=== PATIENT | female | born 1950 | race Caucasian/White ===

== ENCOUNTER 2016-11-26 13:00 | Inpatient (IN) | payer BC, MEDICARE ==
[2016-12-08] MEDS ORDERED: FAMOTIDINE 20MG TABLET PO ONE (06:00)
[2016-12-08] MEDS ORDERED: VANCOMYCIN HCL 1,000 MG in 0.9 % SODIUM CHLORIDE 250ML 250 ML IVPB ONE (06:00)
[2016-12-08] MEDS ORDERED: ACETAMINOPHEN 1,000 MG/100 ML BTL IV ONE (06:00)
[2016-12-08] MEDS ORDERED: CELECOXIB 100 MG CAPSULE PO ONE (06:00)
[2016-12-08] MEDS ORDERED: CEFAZOLIN 2 Gram 2 GM/50 ML BAG IVPB ONE (06:00)
[2016-12-08] MEDS ORDERED: METOCLOPRAMIDE 10 MG TABLET PO ONE (06:00)
[2016-12-08] MEDS ORDERED: MECLIZINE 25 MG TABLET PO ONE (06:00)
[2016-12-08 07:55] LABS: ABO GROUP O; ANTIBODY SCREEN NEGATIVE (NEGATIVE); RH TYPE POSITIVE
[2016-12-08] MEDS ORDERED: TRANEXAMIC ACID 1,000 MG/10 ML ML IV ONE ×2 (08:30→14:00)
[2016-12-08 08:45] LABS: URINE APPEARANCE CLEAR; URINE BILIRUBIN NEGATIVE (NEGATIVE); URINE BLOOD NEGATIVE (NEGATIVE); URINE COLOR YELLOW; URINE GLUCOSE (UA) NEGATIVE (NEGATIVE); URINE KETONE NEGATIVE (NEGATIVE); URINE LEUKOCYTE ESTERASE SMALL (NEGATIVE); URINE NITRITE NEGATIVE (NEGATIVE); URINE PROTEIN NEGATIVE (NEGATIVE); URINE UROBILINOGEN 0.2 E.U./dL (0.20 - 1.00)
[2016-12-08 09:42] LABS: URINE BACTERIA FEW; URINE EPITHELIAL CELLS 0 - 2 (FEW); URINE RBC NONE SEEN (NONE SEEN)
[2016-12-08] MEDS ORDERED: ACETAMINOPHEN W/ CODEINE 300MG/60MG TABLET PO PRN ×2 (11:05)
[2016-12-08] MEDS ORDERED: HYDROMORPHONE HCL 2 MG/ML VIAL IM PRN (11:05)
[2016-12-08] MEDS ORDERED: ZOLPIDEM TARTRATE 5 MG TABLET PO PRN (11:05)
[2016-12-08] MEDS ORDERED: ACETAMINOPHEN 325 MG TAB PO PRN (11:05)
[2016-12-08] MEDS ORDERED: HYDROMORPHONE HCL 1 MG/ML CPJ IM PRN ×2 (11:05)
[2016-12-08] MEDS ORDERED: HYDROCODONE/APAP 10/325 TABLET PO PRN (11:05)
[2016-12-08] MEDS ORDERED: MAGNESIUM HYDROXIDE 30 ML UDC PO PRN (11:05)
[2016-12-08] MEDS ORDERED: NALOXONE 0.4 MG/1 ML VIAL IVP PRN (11:05)
[2016-12-08] MEDS ORDERED: KETOROLAC 30 MG/ML VIAL IVP PRN ×2 (11:05)
[2016-12-08] MEDS ORDERED: AL HYDROX/MAG HYDROX 30ML UD PO PRN (11:05)
[2016-12-08] MEDS ORDERED: DIPHENHYDRAMINE HCL 25 MG CAPSULE PO PRN (11:05)
[2016-12-08] MEDS ORDERED: ONDANSETRON HCL IV 4 MG/2 ML VIAL IVP PRN (11:05)
[2016-12-08] MEDS ORDERED: BISACODYL 10 MG SUPP RC PRN (11:05)
[2016-12-08] MEDS ORDERED: FLU VAC QS 2016-17 (INPT, 3YR+) 60MCG/0.5ML IM ONE (11:42)
[2016-12-08] MEDS: POTASSIUM CHLORIDE/D5-0.9%NACL 20 MEQ/1,000 ML BAG IV SCH ×2 (12:18→20:47)
--- NOTE | 2016-12-08 13:36 | Rehab Evaluation ---
Patient Information - Patient Information Diagnosis: L TKA Ordered Treatment: PT Evaluate and Treat Status: Initial Evaluation Surgery: Yes Date of Surgery: 12/08/16 Past Medical/Surgical Hx: PAST MEDICAL/SURGICAL HISTORY Past Surgical History bilat knee scopes bilat CTR jaw sx bunionectomy left foot EGD c scope PMH - Respiratory Hx Respiratory Disorders Yes Hx Bronchitis Yes Hx Sleep Apnea Yes Hx of CPAP Yes PMH - Cardiovascular Hx Cardiovascular Disorders Yes Hx Hypertension Yes: "boarder line" on no meds Exercise Tolerance Good PMH - Neuro Hx Neurological Disorders No PMH - GI Hx Gastrointestinal Disorders Yes Hx Gastroesophageal Reflux Yes: on meds fair control PMH - Hx Genitourinary Disorders Yes Hx Age of Menopause 51 Hx Urinary Tract Infection Yes: occass. PMH - Endocrine Hx Endocrine Disorders No PMH - Musculoskeletal Hx Musculoskeletal Disorders Yes Hx Arthritis Yes: knees and hands PMH - Psych Hx Psychiatric Problems Yes Hx Anxiety Yes Hx Depression Yes: mild PMH - Hematology/Oncology Hx Hematology/Oncology Yes Disorders Hx Bruising Yes Premorbid Status: Detail (The patient was independent with mobility.) Social History: Detail (The patient lives in a one story home with a basement with an enterance which has 4 or 5 steps with 2 railings. The patient's home has a walk in shower with a seat and a standard toilet. 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 The patient has her own standard walker.) Precautions: Other (WBAT on the L LE.) - Time With Patient Total Time Spent With Patient (Min): 25 Treatment Procedures: Detail (Initial Evaluation and review of ankle pumps.) Subjective Information - Subjective Information Per Patient (The patient had complaints of minimal L knee pain.) Objective Data - Pain Pain Present: Yes Pain Intensity: 2 Pain Scale Used: Numeric (1 - 10) - Mental Status Patient Orientation: Oriented x3 - Visual Perception Appears within normal limits for therapeutic activities - ROM Not within normal limits (The patient's L knee ROM is limited s/p surgery and not formally tested at this time , however the patient was able to bend her knee aproximately 65 degrees when seated.) - Strength/Tone Not within normal limits (The patient's R LE strength was generally 4+to 5/5. The patient's L LE strength was not tested using manual muscle testing but was functional ie: patient lifted L leg in and out of bed.) - Bed Mobility Independent (The patient was independent with supine to and from sit transfer.) - Transfers Independent (The patient was independent with sit to and from stand transfer and toilet transfer with use of grab bar.) - Balance Balance Sitting: Good Balance Standing: Good (The patient was able to stand without support and pull her pants up and down.) - Gait Detail (The patient ambulated 13 feet x2 with supervision of 1 for safety and to handle equipment with wheeled walker WBAT on the L LE.) Therapy Assessment - Therapy Assessment Detail (The patient did well with bed mobility, transfers and ambulation. Feel the patient will reach inpatient PT goals tomorrow in 1 to 2 PT sessions.) Problem List - Problem List Physical Therapy Problem List: Detail (1) Decrease L knee AROM 2)Decreased L LE strength 3) Supervison with ambulation and decreased ambulation distance.) Goals - Goals Physical Therapy Goals: 1) Independent with assistive device WBAT on the L LE on levels and stairs. 2) Independent with HEP. 3) Independent with all transfers and bed mobility Prognosis - Prognosis Good Plan - Plan Physical Therapy Plan: PT 2 times a day until inpatient PT goals have been completed for gait training on levels and stairs, bed mobility, transfer training, instruction in HEP.
[2016-12-08] MEDS ORDERED: KETOROLAC 30 MG/ML VIAL IVP ONE (14:00)
[2016-12-08] MEDS ORDERED: FENTANYL PF 100MCG/2ML VIAL IV ONE (14:00)
[2016-12-08] MEDS ORDERED: BUPIVACAINE 0.5% W/EPI MPF 30 ML VIAL IVP ONE (14:00)
[2016-12-08] MEDS ORDERED: LIDOCAINE 2% MDV (20MG/ML) 20ML VIAL IV ONE (14:00)
[2016-12-08] MEDS ORDERED: PROPOFOL 10 MG/ML VIAL IV ONE (14:00)
[2016-12-08] MEDS ORDERED: MIDAZOLAM HCL 2MG/2ML VIAL IV ONE (14:00)
[2016-12-08] MEDS: HYDROCODONE/APAP 10/325 TABLET PO PRN ×2 (15:10→20:45)
[2016-12-08] MEDS: CEFAZOLIN 2 Gram 2 GM/50 ML BAG IVPB SCH (18:20)
[2016-12-08] MEDS: DOCUSATE SODIUM 100 MG CAPSULE PO SCH (21:53)
[2016-12-08] MEDS: VENLAFAXINE ER 75 MG CAPSULE PO SCH (21:53)
[2016-12-08] MEDS: CALCIUM CARBONATE 500 MG TAB.CHEW PO SCH (21:53)
[2016-12-09] MEDS: CEFAZOLIN 2 Gram 2 GM/50 ML BAG IVPB SCH ×2 (01:40→08:37)
[2016-12-09] MEDS: HYDROCODONE/APAP 10/325 TABLET PO PRN ×2 (03:36→08:36)
[2016-12-09] MEDS: POTASSIUM CHLORIDE/D5-0.9%NACL 20 MEQ/1,000 ML BAG IV SCH (06:29)
[2016-12-09] MEDS ORDERED: PANTOPRAZOLE SODIUM 40 MG TABLET PO SCH (07:00)
[2016-12-09 07:04] LABS: HEMATOCRIT 33.3 % (35.0-47.0); HEMOGLOBIN 10.3 gm/dl (11.6-16.0)
[2016-12-09 07:21] LABS: ANION GAP 6.4 (7-16); BLOOD UREA NITROGEN 11 mg/dL (7-17); CARBON DIOXIDE 25.6 mmol/L (22-30); CREATININE 0.7 mg/dL (0.52-1.04); EST GLOMERULAR FILTRATION RATE > 60 ml/min; GLUCOSE,RANDOM 104 mg/dL (70-110)
[2016-12-09] MEDS: PNEUM 13-VAL/PF 0.5 ML IM ONE ×2 (08:15→15:01)
[2016-12-09] MEDS: VENLAFAXINE ER 75 MG CAPSULE PO SCH (09:31)
[2016-12-09] MEDS: DOCUSATE SODIUM 100 MG CAPSULE PO SCH (09:31)
[2016-12-09] MEDS: CALCIUM CARBONATE 500 MG TAB.CHEW PO SCH (09:31)
[2016-12-09] MEDS ORDERED: RIVAROXABAN 10 MG TABLET PO SCH (10:00)
[2016-12-09] MEDS ORDERED: MULTIVITAMINS/MINERALS TABLET PO SCH (10:00)
[2016-12-09] MEDS ORDERED: CHOLECALCIFEROL 1,000 UNIT TABLET PO SCH (10:00)
[2016-12-09] MEDS ORDERED: FERROUS SULFATE 325 MG TAB PO SCH (10:00)
[2016-12-09] MEDS ORDERED: ASPIRIN 81 MG TABEC PO SCH (10:00)
--- NOTE | 2016-12-09 10:22 | Physical Therapy Tx Note ---
Physical Therapy Tx Note - Treatment Note Tolerated: Good Total Time Spent With Patient: 35 Physical Therapy Tx Note: Detail (Pt up in chair upon arrival, just finished getting dressed w/OT. Fatigued, painful L knee despite pain med about one hour before. Sit/stand to standard walker from bedside chair w/SBA, ambulated out into hallway and return to bedside chair, about 75 feet total, w/SBA, WBAT L LE. VCs for proper gait technique; tends to keep L knee straight and "vault" w/ R LE. Performed 10 reps each of ankle pumps, heel slides, hamstring isometrics , quad isometrics, hip flexion. Applied PolarPak to L knee, elevated L foot onto bedside table support, call light placed within reach. Left up in chair; nrsg aware.) Physical Therapy Problem List: Detail (1) Decrease L knee AROM 2)Decreased L LE strength 3) Supervison with ambulation and decreased ambulation distance.) Physical Therapy Goals: 1) Independent with assistive device WBAT on the L LE on levels and stairs. 2) Independent with HEP. 3) Independent with all transfers and bed mobility Prognosis: Good Physical Therapy Plan: PT 2 times a day until inpatient PT goals have been completed for gait training on levels and stairs, bed mobility, transfer training, instruction in HEP.
--- NOTE | 2016-12-09 10:52 | Rehab Evaluation ---
Patient Information - Patient Information Diagnosis: L TKA Ordered Treatment: OT Evaluate and Treat Status: Initial Evaluation Surgery: Yes (Left TKA) Date of Surgery: 12/08/16 Past Medical/Surgical Hx: PAST MEDICAL/SURGICAL HISTORY Past Surgical History bilat knee scopes bilat CTR jaw sx bunionectomy left foot EGD c scope PMH - Respiratory Hx Respiratory Disorders Yes Hx Bronchitis Yes Hx Sleep Apnea Yes Hx of CPAP Yes PMH - Cardiovascular Hx Cardiovascular Disorders Yes Hx Hypertension Yes: "boarder line" on no meds Exercise Tolerance Good PMH - Neuro Hx Neurological Disorders No PMH - GI Hx Gastrointestinal Disorders Yes Hx Gastroesophageal Reflux Yes: on meds fair control PMH - Hx Genitourinary Disorders Yes Hx Age of Menopause 51 Hx Urinary Tract Infection Yes: occass. PMH - Endocrine Hx Endocrine Disorders No PMH - Musculoskeletal Hx Musculoskeletal Disorders Yes Hx Arthritis Yes: knees and hands PMH - Psych Hx Psychiatric Problems Yes Hx Anxiety Yes Hx Depression Yes: mild PMH - Hematology/Oncology Hx Hematology/Oncology Yes Disorders Hx Bruising Yes Premorbid Status: Detail (Pt lives with spouse in a 1 story house with basement , she stays on the first floor. She has 4-5 steps with doug handrailings at the entrance, a walk in shower with a seat and a standard height toilet, no grab bars. 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 Her spouse will be assisting with IADLs as needed. She has a standard walker and a straight cane.) Social History: Detail (Pt reports she has a supportive spouse.) Precautions: [place], Fall, Other (WBAT on the L LE.) - Time With Patient Total Time Spent With Patient (Min): 45 Treatment Procedures: Detail (OT eval low complexity) Subjective Information - Subjective Information Per Patient Objective Data - Pain Pain Present: Yes (3/10 prior to activity, 6-7/10 after eval) - Mental Status Patient Orientation: Oriented x3 - Visual Perception Appears within normal limits for therapeutic activities - ROM Within normal limits (Doug UE AROM WNL) - Strength/Tone Within normal limits (Doug UE MMT WNL) - Coordination Appears within normal limits for therapeutic activities - Bed Mobility Independent (Ind with supine to sit.) - Transfers Independent (Ind with sit to stand from EOB and chair.) - Balance Balance Sitting: Good Balance Standing: Good - Sensation Intact - Gait Detail (Pt able to take several steps to chair with walker Indly.) - ADL's/IADL's Detail (Pt able to complete doffing of slippers, donning of shorts, socks, tennis shoes, shirt and bra with assist to hook bra due to IV site in hand. Reviewed modified dressing techniques, pt demonstrated learning. She reports she has been toileting Indly. Educated pt. re: adaptive equipment, she feels this is not necessary at this time.) Therapy Assessment - Therapy Assessment Detail (Pt is safe and Ind with self care activities and demonstrates modified dressing techniques.) Problem List - Problem List Physical Therapy Problem List: Detail (1) Decrease L knee AROM 2)Decreased L LE strength 3) Supervison with ambulation and decreased ambulation distance.) Occupational Therapy Problem List: Detail (No current OT problems identified at this time.) Goals - Goals Physical Therapy Goals: 1) Independent with assistive device WBAT on the L LE on levels and stairs. 2) Independent with HEP. 3) Independent with all transfers and bed mobility Occupational Therapy Goals: No IP OT goals identified. Prognosis - Prognosis Good Plan - Plan Physical Therapy Plan: PT 2 times a day until inpatient PT goals have been completed for gait training on levels and stairs, bed mobility, transfer training, instruction in HEP. Occupational Therapy Plan: No further IP OT needed at this time. Pt may benefit from home OT to assess IADLs after discharge. Thank you for this referral.
--- NOTE | 2016-12-09 16:47 | Physical Therapy Tx Note ---
Physical Therapy Tx Note - Treatment Note Tolerated: Good Total Time Spent With Patient: 35 Physical Therapy Tx Note: Detail (Pt lying in bed upon arrival, awake. present in room. Waiting to be discharged. Independent w/bed mobility to edge of bed, independent sit/stand to walker. Adjusted walker height by one notch higher for better posture. Ambulated from bedside to stairwell door, about 60 feet. Rested in wheelchair for several minutes, while we reviewed verbally stair technique w/walker. Independent sit/stand to walker, ambulated to stairwell; ascended/descended 3 steps w/single handrail and walker, and CGA, then ambulated back to bedside (about 75), w/SBA. Required light assistance for L LE into bed. Left in bed w/call light in reach, present. Nrsg notified.) Physical Therapy Problem List: Detail (1) Decrease L knee AROM 2)Decreased L LE strength 3) Supervison with ambulation and decreased ambulation distance.) Physical Therapy Goals: 1) Independent with assistive device WBAT on the L LE on levels and stairs - met for levels, CGA for stairs. 2) Independent with HEP - met. 3) Independent with all transfers and bed mobility - met Prognosis: Good Physical Therapy Plan: Pt is planning to go home this afternoon. Anticipate discharge, with home care visit apparently scheduled for tomorrow. Pt is discharged from PT at this time, having met all goals.
--- NOTE | 2016-12-14 17:07 | Operative Note ---
DATE OF SURGERY: 12/08/2016 PREOPERATIVE DIAGNOSIS: End-stage arthrosis of the left knee. POSTOPERATIVE DIAGNOSIS: End-stage arthrosis of the left knee. OPERATION: Cemented left total knee arthroplasty using Beckett [employer] Nephew Lisa II components, with a size of 5 Oxinium femur, size 4 stem to the baseplate, 9 mm lipped highly cross-linked tibial insert, and a 35 mm all-plastic patella. Surgeon: Christiano Viera M.D. Anesthesia: Spinal. PREPARATION: ChloraPrep. INDIVIDUAL CONSIDERATIONS: None. PROCEDURE: Patient was taken to the operating room, placed supine on the operating table. She had successful induction with general anesthetic. Her left lower extremity was prepped and draped in the usual fashion. The limb was elevated and the tourniquet was inflated to 250 mm Hg. The patient had midline approach to the knee. Sharp dissection carried down through the skin subcutaneous tissue. Small veins were coagulated with a Bovie. A medial arthrotomy was performed, patella was everted, knee was flexed. Patient had exposed bone in the medial and patellofemoral compartments. Fat pad was resected, ACL was sacrificed, provisional anterior meniscectomies were performed, and the capsule was released from the medial proximal tibia. The initial femoral transport pilot hole was then made free hand. The intramedullary femoral cutting jig was placed. It was cut in 7 degrees of valgus and adjusted for rotation and secured with pins for a 10 mm resection. The initial transverse cut was then made. Skin guide was placed in the anterior and posterior transport pilot holes. It was found that a size 5 would be appropriate. The anterior and posterior cuts, followed by chamfer cuts, were made, osteophytes removed, and a size 5 trial was placed and found to fit well. Tibia was brought forward and the remainder of the meniscal remnants was removed with a Bovie. The extraarticular tibial cutting jig was placed. It was cut in neutral with a 3-degree ___ slope. Care was taken to adjust her rotation and flexion using the extraarticular alignment guide and bony landmarks. It was set for a 9 mm resection, keyed up high lateral side and secured with pins. When cutting the tibia, care was taken to preserve the PCL insertion on the tibia. After removing osteophytes, it was found that a size 4 baseplate for trial fit appropriately and was adjusted for rotation and secured with pins. With the 9 mm trial and femoral trial, there was excellent motion and stability, ligamentous balance, and rotational alignment were felt to be normal. The femoral transport pilot holes were impacted and tri-flanged tibial stamp was impacted, and these trial components were removed. Patient had a sufficiently thick patella and roughly 9 mm of bone was removed with an oscillating saw. I could fit a 35 patella, and 3 transport pilot holes were drilled. Tourniquet was let down briefly to get bleeders posteriorly, and then placed back up again. Now thorough irritation with pulsatile Betadine and saline to remove any visually palpable debris. Bony surfaces were then dried. A size 4 stemmed tibial baseplate was cemented into place followed by impaction of the 9 mm lipped tibial insert followed the cementing of a size 5 Oxinium femur followed by cementing in a 35 mm all-plastic patella. Implant surfaces were compressed, excess cement was removed, and after the cement had set, again, excellent motion and stability, ligamentous balance, rotational alignment, and patellofemoral tracking were normal. No lateral release was required. Tourniquet was let down. Hemostasis was obtained with a Bovie. Again, final irrigation. The periosteum and then skin and subcutaneous tissue were infiltrated with 30 mL of 0.5% Marcaine with epinephrine. The capsule was then closed with running #2 Quill Subcu was closed with running 0 Quill. Skin was closed with alfonso. One gram of tranexamic acid was mixed with 40 mL of saline. This was injected into the knee through an 18-gauge needle, and perioperatively, she did get a gram of tranexamic acid, 1 gram IV piggyback. Patient tolerated the procedure well, needle and sponge counts were correct, estimated blood loss was minimal, and she was taken back to Recovery in good condition. There were no complications. RADHA
--- NOTE | 2016-12-14 17:10 | Discharge Summary ---
DATE OF ADMISSION: 12/08/2016 DATE OF DISCHARGE: 12/09/2016 DATE OF SURGERY: 12/08/2016 HISTORY: The patient is a delightful 66-year-old female who presents with end-stage arthrosis of her left knee. She was admitted after left total knee arthroplasty. Her hospital course was unremarkable. The plan is to discharge to home in the care of her family. Home PT, visiting nurse has been arranged. She did not require transfusion. She will be given Xarelto for DVT prophylaxis and [place] for pain. Her discharge condition was good. These instructions were given directly to her and her . The visiting nurse will remove her sutures in 2 weeks. She will follow up in my office in 4 weeks. FINAL DIAGNOSIS: End-stage arthrosis, left knee. SECONDARY DIAGNOSES: None. OPERATIONS AND PROCEDURES: Cemented left total knee arthroplasty. CC: Dr. Hankins MTDD
== END 2016-12-09 15:30 | disposition home or self-care (01) | DRG 470 ==
LOC: MEDSURG 12-08 06:58
PROVIDERS: ADMIT Orthopaedic Surgery; ATTEND Orthopaedic Surgery
PROC: 0SRD0J9 Replacement of Left Knee Joint with Synthetic Substitute, Cemented, Open Approach (ICD-10-PCS; principal; 2016-12-08 09:00)
DX: M17.12 Unilateral primary osteoarthritis, left knee (principal)
CPT/HCPCS: 80048; 81001; 82310; 85014; 85018; 86850; 86900; 86901; 90670; 97110; 97116; 97165; J1885; J3480; J7050

== ENCOUNTER 2017-11-02 10:30 | Inpatient (IN) | payer MEDICARE ==
[2017-11-09] MEDS ORDERED: CEFAZOLIN 2 Gram 2 GM/50 ML BAG IVPB ONE (06:00)
[2017-11-09] MEDS ORDERED: MECLIZINE 25 MG TABLET PO ONE (06:00)
[2017-11-09] MEDS ORDERED: FAMOTIDINE 20MG TABLET PO ONE (06:00)
[2017-11-09] MEDS ORDERED: METOCLOPRAMIDE 10 MG TABLET PO ONE (06:00)
[2017-11-09] MEDS ORDERED: CELECOXIB 100 MG CAPSULE PO ONE (06:00)
[2017-11-09] MEDS ORDERED: VANCOMYCIN HCL 1,000 MG in DEXTROSE 5 % IN WATER 250 ML IVPB ONE ×2 (06:00)
[2017-11-09 12:36] LABS: ABO GROUP O; ANTIBODY SCREEN NEGATIVE (NEGATIVE); RH TYPE POSITIVE
[2017-11-09] MEDS ORDERED: DIPHENHYDRAMINE HCL 50 MG/ML VIAL IVP ONE (14:00)
[2017-11-09] MEDS ORDERED: FENTANYL PF 100MCG/2ML VIAL IV ONE (14:00)
[2017-11-09] MEDS ORDERED: BUPIVACAINE 0.5% W/EPI MPF 30 ML VIAL IVP ONE (14:00)
[2017-11-09] MEDS ORDERED: LIDOCAINE 2% MDV (20MG/ML) 20ML VIAL IV ONE (14:00)
[2017-11-09] MEDS ORDERED: MIDAZOLAM HCL 2MG/2ML VIAL IV ONE (14:00)
[2017-11-09] MEDS ORDERED: TRANEXAMIC ACID 1,000 MG/10 ML ML IV ONE (14:00)
[2017-11-09] MEDS ORDERED: PROPOFOL 10 MG/ML VIAL IV ONE (14:00)
[2017-11-09] MEDS ORDERED: ONDANSETRON HCL IV 4 MG/2 ML VIAL IVP ONE ×2 (14:00→21:30)
[2017-11-09] MEDS ORDERED: HYDROMORPHONE PF 1MG/ML **AMPULE IV ONE (14:00)
[2017-11-09] MEDS ORDERED: NALOXONE 0.4 MG/1 ML VIAL IVP PRN (16:00)
[2017-11-09] MEDS ORDERED: BISACODYL 10 MG SUPP RC PRN (16:00)
[2017-11-09] MEDS ORDERED: KETOROLAC 30 MG/ML VIAL IVP PRN ×2 (16:00)
[2017-11-09] MEDS ORDERED: ZOLPIDEM TARTRATE 5 MG TABLET PO PRN (16:00)
[2017-11-09] MEDS ORDERED: MAGNESIUM HYDROXIDE 30 ML UDC PO PRN (16:00)
[2017-11-09] MEDS ORDERED: HYDROCODONE/APAP 10/325 TABLET PO PRN ×2 (16:00)
[2017-11-09] MEDS ORDERED: TRAMADOL HCL 50 MG TABLET PO PRN (16:00)
[2017-11-09] MEDS ORDERED: AL HYDROX/MAG HYDROX 30ML UD PO PRN (16:00)
[2017-11-09] MEDS ORDERED: ONDANSETRON HCL IV 4 MG/2 ML VIAL IVP PRN (16:00)
[2017-11-09] MEDS ORDERED: ACETAMINOPHEN W/ CODEINE 300MG/60MG TABLET PO PRN ×2 (16:00)
[2017-11-09] MEDS ORDERED: HYDROMORPHONE HCL 2 MG/ML VIAL IM PRN (16:00)
[2017-11-09] MEDS ORDERED: DIPHENHYDRAMINE HCL 25 MG CAPSULE PO PRN (16:00)
[2017-11-09] MEDS ORDERED: ACETAMINOPHEN 325 MG TAB PO PRN (16:00)
[2017-11-09] MEDS: POTASSIUM CHLORIDE/D5-0.9%NACL 20 MEQ/1,000 ML BAG IV SCH (20:00)
[2017-11-09] MEDS: DOCUSATE SODIUM 100 MG CAPSULE PO SCH (21:50)
[2017-11-09] MEDS: CEFAZOLIN 2 Gram 2 GM/50 ML BAG IVPB SCH (21:50)
[2017-11-09] MEDS: CALCIUM CARBONATE 500 MG TAB.CHEW PO SCH (21:50)
[2017-11-09] MEDS: VENLAFAXINE ER 75 MG CAPSULE PO SCH (21:50)
[2017-11-10] MEDS: CEFAZOLIN 2 Gram 2 GM/50 ML BAG IVPB SCH ×2 (06:12→13:19)
[2017-11-10] MEDS: POTASSIUM CHLORIDE/D5-0.9%NACL 20 MEQ/1,000 ML BAG IV SCH ×2 (06:15→10:09)
[2017-11-10 06:48] LABS: HEMATOCRIT 31.9 % (35.0-47.0); HEMOGLOBIN 9.6 gm/dl (11.6-16.0)
[2017-11-10] MEDS ORDERED: PANTOPRAZOLE SODIUM 40 MG TABLET PO SCH (07:00)
[2017-11-10 07:05] LABS: BLOOD UREA NITROGEN 9 mg/dL (8-23); CREATININE 0.6 mg/dL (0.5-0.9); EST GLOMERULAR FILTRATION RATE > 60 mL/min; GLUCOSE,RANDOM 97 mg/dL (74-109)
--- NOTE | 2017-11-10 09:18 | Rehab Evaluation ---
Patient Information - Patient Information Diagnosis: R hip DJD Ordered Treatment: PT Evaluate and Treat Status: Initial Evaluation Surgery: Yes (R THR) Date of Surgery: 11/09/17 Past Medical/Surgical Hx: PAST MEDICAL/SURGICAL HISTORY Past Surgical History LTKA 12-08-16 bilat knee scopes bilat CTR jaw sx bunionectomy left foot EGD c scope PMH - Respiratory Hx Respiratory Disorders Yes Hx Bronchitis Yes Hx Sleep Apnea Yes Hx of CPAP Yes PMH - Cardiovascular Hx Cardiovascular Disorders Yes Hx Hypertension Yes: "boarder line" on no meds Exercise Tolerance Fair PMH - Neuro Hx Neurological Disorders Yes Hx Headaches Yes: occassional PMH - GI Hx Gastrointestinal Disorders Yes Hx Gastroesophageal Reflux Yes: on meds fair control PMH - Hx Genitourinary Disorders Yes Hx Age of Menopause 61 Hx Urinary Tract Infection Yes: occass. PMH - Endocrine Hx Endocrine Disorders No PMH - Musculoskeletal Hx Musculoskeletal Disorders Yes Hx Arthritis Yes: knees and hands and right hip PMH - Psych Hx Psychiatric Problems Yes Hx Anxiety Yes Hx Depression Yes: mild PMH - Hematology/Oncology Hx Hematology/Oncology Yes Disorders Hx Bruising Yes Premorbid Status: Detail (The patient was previously independent with all mobility.) Social History: Detail (The patient lives with spouse in a one story house with 4 steps at the enterance and two railings. The patient's bathroom is equipped with a walk in shower with tub seat and a hand held shower and a standard height toilet with a riser seat. The patient has a walker with wheels, cane and crutches.) Precautions: [place], Other (THR precautions.) - Time With Patient Total Time Spent With Patient (Min): 30 Treatment Procedures: Detail (Initial Evaluation.) Subjective Information - Subjective Information Per Patient (The patient had minimal complaints of R hip pain which she did not rate using 0-10 pain scale.) Objective Data - Mental Status Patient Orientation: Oriented x3 - Visual Perception Appears within normal limits for therapeutic activities - ROM Not within normal limits (The patient's R hip is within total hip precautions. All other LE AROM is WNL.) - Strength/Tone Not within normal limits (The patient's R LE strength was not tested secondary to s/p surgery, however is functional ie: patient is able to lift leg following total hip precautions. All other LE strength is generally 4+ to 5/5.) - Bed Mobility Independent (The patient was independent with supine to and sit transfer following THR precautions.) - Transfers Independent (The patient was independent with sit to and from stand transfer.) - Balance Balance Sitting: Good Balance Standing: Good - Sensation Intact - Gait Detail (The patient ambulated with 2 wheeled walker a distance of 108 feet x 1 WBAT on R LE independently. The patient ambulated on 3 steps with one railing and folded walker with supervision for safety.) Therapy Assessment - Therapy Assessment Detail (The patient was independent with bed mobility, transfers and ambulation on levels and stairs ( supervision for safety only). The patient has met all inpatient PT goals .) Patient Education - Patient Education Teaching Topic: Exercise/Activity (The patient's THR exercises were reviewed including : gluteal sets, quad sets, hamstring sets, hip abduction and heel slides.), Precautions (The patient was aware of THR precautions and demonstrated good understanding of them.) Response: Return Demonstration Teaching Method: Demonstration, Handout Teaching Recipient: Patient Barriers To Learning: None Problem List - Problem List Physical Therapy Problem List: Detail (Decreased R hip strength as to be expected following surgery.) Goals - Goals Physical Therapy Goals: All inpatient PT goals have been met. Plan - Plan Physical Therapy Plan: All inpatient PT goals have been met. The patient is to continue with Home Care PT upon discharge from [facility].
[2017-11-10] MEDS ORDERED: MULTIVITAMINS/MINERALS TABLET PO SCH (10:00)
[2017-11-10] MEDS ORDERED: CHOLECALCIFEROL 1,000 UNIT TABLET PO SCH (10:00)
[2017-11-10] MEDS ORDERED: FERROUS SULFATE 325 MG TAB PO SCH (10:00)
[2017-11-10] MEDS ORDERED: RIVAROXABAN 10 MG TABLET PO SCH (10:00)
[2017-11-10] MEDS ORDERED: ASPIRIN 81 MG TABEC PO SCH (10:00)
[2017-11-10] MEDS: VENLAFAXINE ER 75 MG CAPSULE PO SCH (10:15)
[2017-11-10] MEDS: DOCUSATE SODIUM 100 MG CAPSULE PO SCH (10:15)
[2017-11-10] MEDS: CALCIUM CARBONATE 500 MG TAB.CHEW PO SCH (10:17)
--- NOTE | 2017-11-10 14:19 | Rehab Evaluation ---
Patient Information - Patient Information Diagnosis: R hip DJD Ordered Treatment: OT Evaluate and Treat Status: Initial Evaluation Surgery: Yes (R THR) Date of Surgery: 11/09/17 Past Medical/Surgical Hx: PAST MEDICAL/SURGICAL HISTORY Past Surgical History LTKA 12-08-16 bilat knee scopes bilat CTR jaw sx bunionectomy left foot EGD c scope PMH - Respiratory Hx Respiratory Disorders Yes Hx Bronchitis Yes Hx Sleep Apnea Yes Hx of CPAP Yes PMH - Cardiovascular Hx Cardiovascular Disorders Yes Hx Hypertension Yes: "boarder line" on no meds Exercise Tolerance Fair PMH - Neuro Hx Neurological Disorders Yes Hx Headaches Yes: occassional PMH - GI Hx Gastrointestinal Disorders Yes Hx Gastroesophageal Reflux Yes: on meds fair control PMH - Hx Genitourinary Disorders Yes Hx Age of Menopause 61 Hx Urinary Tract Infection Yes: occass. PMH - Endocrine Hx Endocrine Disorders No PMH - Musculoskeletal Hx Musculoskeletal Disorders Yes Hx Arthritis Yes: knees and hands and right hip PMH - Psych Hx Psychiatric Problems Yes Hx Anxiety Yes Hx Depression Yes: mild PMH - Hematology/Oncology Hx Hematology/Oncology Yes Disorders Hx Bruising Yes Premorbid Status: Detail (The patient was previously independent with all mobility, meal prep, laundry, home mgmt and meal prep.) Social History: Detail (The patient lives with spouse in a one story house with 4 steps at the entrance and two railings. The patient's bathroom is equipped with a walk in shower with tub seat and a hand held shower, no grab bars, and a standard height toilet with a riser seat, no grab bars. The patient has a walker with wheels, cane, crutches and a crotch breaker.) Precautions: [place], [place], Other (THR precautions.) - Time With Patient Total Time Spent With Patient (Min): 45 Treatment Procedures: Detail (OT eval low complexity) Subjective Information - Subjective Information Per Patient Objective Data - Pain Pain Present: Yes (10/28) - Mental Status Patient Orientation: Oriented x3 - Visual Perception Appears within normal limits for therapeutic activities - ROM Within normal limits (Doug UE AROM WNL) - Strength/Tone Within normal limits (Doug UE strength WNL) - Coordination Appears within normal limits for therapeutic activities - Bed Mobility Independent (Ind with supine to sit and sit to supine.) - Transfers Independent (Ind with sit to stand from EOB, commode and chair height.) - Balance Balance Sitting: Good Balance Standing: Good - Sensation Intact - Gait Detail (Pt ambulating in room with 2 wheeled walker Indly.) - ADL's/IADL's Detail (Pt educated and demonstrated learning of LE dressing using crotch breaker with exception of shoe which she reports spouse will assist with if needed after swelling improves. She was able to recall total hip precautions and maintain them during dressing. Pt reports she does not wear socks in the summer. She was educated on shower and kitchen safety and verbalized learning.) Therapy Assessment - Therapy Assessment Detail (Pt is safe and Ind with self cares using adaptive equipment while maintaining hip precautions.) Problem List - Problem List Physical Therapy Problem List: Detail (Decreased R hip strength as to be expected following surgery.) Occupational Therapy Problem List: Detail (No current OT problems identified.) Goals - Goals Physical Therapy Goals: All inpatient PT goals have been met. Occupational Therapy Goals: No current OT goals identified at this time. Prognosis - Prognosis Good Plan - Plan Physical Therapy Plan: All inpatient PT goals have been met. The patient is to continue with Home Care PT upon discharge from [facility]. Occupational Therapy Plan: No IP OT recommended at this time. Thank you for this referral.
--- NOTE | 2017-11-10 20:43 | Discharge Summary ---
DATE OF ADMISSION: 11/09/2017 DATE OF DISCHARGE: 11/10/2017 DATE OF SURGERY: 11/09/2017 HISTORY: Janessa a delightful 66-year-old female who presents with end-stage arthrosis of her right hip. She was admitted after a right total hip arthroplasty. Postoperatively, she did well. Her hospital course was unremarkable. DISCHARGE INSTRUCTIONS: The plan is to discharge her to home in the care of her family. Home PT and Visiting Nurse has been arranged. She will be given [place] for pain and Xarelto for DVT prophylaxis along with Aspirin. She will follow-up in my office in four weeks. Sutures will be removed by the Visiting Nurse in two weeks. FINAL DIAGNOSIS/PRIMARY DIAGNOSIS: END-STAGE ARTHROSIS OF THE RIGHT HIP. SECONDARY DIAGNOSIS: ACUTE OPERATIVE BLOOD LOSS ANEMIA. OPERATIONS AND PROCEDURES: CEMENTLESS RIGHT TOTAL HIP ARTHROPLASTY. JOB NUMBER: [id number] MTDD
--- NOTE | 2017-11-10 21:55 | Operative Note ---
DATE: 11/09/2017. PREOPERATIVE DIAGNOSIS: End-stage arthrosis of the right hip. POSTOPERATIVE DIAGNOSIS: End-stage arthrosis of the right hip. PROCEDURE: Cementless right total hip arthroplasty using [employer] components, with a size 54 no-hole reflection cup, a 32 mm diameter 35 degree offset highly cross-linked liner, a size 13 standard offset Lowpoint cementless stem with a +0, 32 mm diameter Oxinium head. STAFF SURGEON: Christiano Viera M.D. ANESTHESIA: Spinal. PREPARATION: ChloraPrep. INDIVIDUAL CONSIDERATIONS: None. PROCEDURE: The patient was taken to the Operating Room and placed supine on the operating table. She had successful induction of a spinal anesthetic. She was then placed on her side, right side up, and her right leg and hip were prepped and draped in the usual fashion. The patient had a direct posterior approach to the hip. Sharp dissection was carried down through the skin and subcutaneous tissue. Small veins were coagulated with a Bovie. The tensor gluteal fascia was opened along the entire length of the incision and deep retractors were placed. Short external rotators were identified and the piriformis fossa removed exposing the posterior capsule. A posterior capsulectomy was performed. The hip was dislocated posteriorly. The patient's femoral head had areas of devoid cartilage near the dome and areas of macerated cartilage. The femoral neck cut was then made free hand with an oscillating saw, about a fingerbreadth above the lesser troch. A rim capsulectomy was performed. The dome of the acetabulum was also devoid of cartilage. Starting with a 45 mm reamer to medialize, I went ahead and reamed to the introitus, which was a 53 for a 54 cup. I slightly under-reamed to 52. After irrigation, I impacted a size 54 no-hole reflection cup in 20 degrees of forward flexion and 40 degrees of abduction using the extraarticular alignment guide and bony landmarks. There was very solid cementless fixation. I went ahead and placed the center cap screw and then impacted a 35 degree offset 32 mm diameter liner with the offset basically posterior/inferiorly. This was packed off. The box-cutting osteotome was used to remove proximal metaphyseal bone of the femur. Mid-stem reaming was done to a size 13. I started feeling cortex at maybe 11. Broaching was done to size 13 and anteversion was dialed in between 25 and 30 degrees, which actually basically followed the natural anteversion angle. With a standard neck length and a +0, I had absolute stability. I tried a high offset but that was going to be too tight. This gave absolute stability. I had full anterior stability in full extension and external rotation. I actually flexed to her pedunculus and internally rotated 90 degrees and still had stability. The broach trial was removed and after irrigation and after calcar reaming, I went ahead and impacted a size 13 standard Lowpoint stem with solid calcar contact and solid cementless fixation. I irrigated again, dried the Carlin taper, impacted a +0 32 mm diameter Oxinium head and reduced the hip with the same stability. The sciatic nerve was inspected and found to be completely intact. Hemostasis was obtained with a Bovie. I went ahead and then mixed 1 gram of Tranexamic Acid with 30 mL of saline and placed this deep in the fascia. Patient did receive a gram of Tranexamic Acid IV prior. The tensor gluteal fascia was closed with running #2 Quill. The subcu was closed in layers with running #0 Quill. The skin was closed with alfonso. I did infiltrate the skin with 30 mL of 0.5% Marcaine with Epinephrine. A sterile Bulkee compressive Aquacel-type dressing was applied. The patient tolerated the procedure well. Needle and sponge counts were correct. Estimated blood loss was 400 mL. We will check the hemoglobin in the morning. There were no complications. cc: Dr. Cr Garza JOB NUMBER: [id number] [facility]
== END 2017-11-10 14:15 | disposition home health service (06) | DRG 470 ==
LOC: MEDSURG 11-09 11:14
PROVIDERS: ADMIT Orthopaedic Surgery; ATTEND Orthopaedic Surgery
PROC: 0SR906A Replacement of Right Hip Joint with Oxidized Zirconium on Polyethylene Synthetic Substitute, Uncemented, Open Approach (ICD-10-PCS; principal; 2017-11-09 13:30)
DX: M16.11 Unilateral primary osteoarthritis, right hip (principal); G47.33 Obstructive sleep apnea (adult) (pediatric)
CPT/HCPCS: 80048; 85014; 85018; 86850; 86900; 86901; C1776; J1170; J1200; J1885; J2405; J3480